=== PATIENT | female | born 1955 | race Caucasian/White ===

== ENCOUNTER → 2017-01-25 | Day surgery (SDC) | payer MEDICARE, MEDICAID ==
[~2017-01-25] VITALS: Ht 170.2 cm; Wt 140.0 kg
[~2017-01-25] MED LIST: 0.9% Sodium Chloride 1,000 ML IV SCH; ALBU4TAB4 PO; ASCO100089 PO; ASPI-973 PO; CALC600T87 PO; FENO160T14 PO; FURO40SO4 PO; IBUP-1827 PO; LIP40 PO; LISI-571 PO; METF1000 PO; MULT-1018 PO; NPH,100V11 SUBQ; OMEP20CA11 PO; RANI150C4 PO; Sodium Chloride LOK Flush 10 mL Syringe IV PRN; fentaNYL-PF 50 mCg/mL 2 mL Inj IVPUSH PRN
[2017-01-25 10:54] VITALS: BP 154/87; PULSE 96; RESP 16; O2SAT 94
[2017-01-25 11:55] VITALS: BP 140/69; PULSE 93; RESP 16; O2SAT 99
[2017-01-25 12:08] VITALS: BP 140/72; PULSE 91; RESP 16; O2SAT 98
[2017-01-25 12:20] VITALS: BP 125/79; PULSE 84; RESP 16; O2SAT 98
[2017-01-25 12:29] VITALS: BP 119/72; PULSE 84; RESP 16; O2SAT 96
--- NOTE | 2017-01-25 14:23 | ENDO ---
[address] [address] ENDOSCOPY PROCEDURE PATIENT: HYACINTH EVANS : 1955 MR#: [id number] ADMIT: 01/25/2017 JOB ID: [id number] DATE: 01/25/2017 PROCEDURE: Colonoscopy. INDICATION: Colon cancer screening. Patient's ASA classification is two. Mallampati score is two. MEDICATIONS: 1. Versed 6 mg. 2. Fentanyl 150 mcg. INSTRUMENT USED: PCF H 180 AL PREPARATION QUALITY: Good. PROCEDURE DETAILS: After informed consent was obtained, the patient was brought into the GI suite, where she was placed on oxygen via nasal cannula and monitored with continuous pulse oximeter, telemetry, and blood pressure monitoring. A time-out was performed, then she was placed in the left lateral decubitus position and medications were administered for sedation. Digital rectal exam was performed, which was unremarkable. The colonoscope was then inserted into the rectum and advanced under direct visualization to the cecum, which was identified by the presence of the ileocecal valve and appendiceal orifice. Once the cecum was reached, the colonoscope was withdrawn back into the rectum as the mucosa and lumen were examined. In the rectum, retroflexion was performed. Following retroflexion, the remaining air in the rectum was suctioned and the procedure was completed. FINDINGS: 1. In the cecum there was a diminutive polyp that was removed with cold biopsy forceps. 2. In the ascending colon there were three polyps measuring in size from 5 mm to 6 mm. All three polyps were removed with a hot snare. 3. In the transverse colon there was a 5 mm polyp that was removed with a hot snare. 4. In the descending colon there was a 4 mm sessile polyp that was removed with a hot snare. 5. In the sigmoid colon there was a 3-4 mm polyp that was removed with a cold snare. 6. Scattered diverticula were seen throughout the left side of the colon. IMPRESSION: 1. Cecal polyp. 2. Three ascending colon polyps. 3. One transverse colon polyp. 4. Descending colon polyp. 5. Sigmoid polyp. 6. Left-sided diverticulosis. RECOMMENDATIONS: 1. Avoid NSAIDs and anticoagulants for 72 hours. 2. Fiber rich diet. 3. Repeat colonoscopy in three years. COMPLICATIONS: None. ESTIMATED BLOOD LOSS: Less than 5 mL.
--- NOTE | 2017-02-01 11:20 | PATH ---
SURGICAL PATHOLOGY Attending Physician:Jessica Bailey CASE STATUS: Signed Out PATIENT NAME: HYACINTH EVANS PID: [id number] : 1955 DATE COLLECTED:01/25/2017 22:01 SPECIMEN: 1: Colon, Polyp 2: Colon, Polyp 3: Colon, Polyp 4: Colon, Polyp 5: Colon, Polyp CLINICAL HISTORY: 1). ASCENDING COLON POLYP X3 2). CECAL POLYP X1 3). TRANSVERSE COLON POLYP X1 4). DESCENDING COLON POLYP X1 5). SIGMOID POLYP X1 FINAL DIAGNOSIS: 1. Ascending Colon Polyps x3, Biopsies: Tubular adenoma, (four of nine pieces). 2. Cecal Polyp, Biopsy: Tubular adenoma. 3. Transverse Colon Polyp, Biopsy: Tubular adenoma. 4. Descending Colon Polyp, Biopsy: Tubular adenoma. 5. Sigmoid Colon Polyp, Biopsy: Hyperplastic polyp. ICD10: D12.6 GROSS DESCRIPTION: The specimen is received in five formalin filled containers labeled with the patient's name. 1). The specimen is labeled "ascending colon polyp x3" and consists of multiple portions of tissue which aggregate to 0.3 x 0.3 x 0.3 CM. The specimen is filtered and entirely submitted in cassette 1A. 2). The specimen is labeled "cecal polyp x1" and consists of 2 pieces of tissue which aggregate to 0.2 x 0.2 x 0.2 CM. The specimen is entirely submitted in cassette 2A. 3). The specimen is labeled "transverse colon polyp x1" and consists of a 0.2 x 0.2 x 0.2 CM portion of tissue which is entirely submitted in cassette 3A. 4). The specimen is labeled "descending colon polyp x1" and consists of a 0.3 x 0.3 x 0.3 CM portion of tissue which is entirely submitted in cassette 4A. 5). The specimen is labeled "sigmoid colon polyp x1" and consists of a 0.3 x 0.3 x 0.2 CM portion of tissue which is entirely submitted in cassette 5A. 01/25/2017[place] ICD-9 CODES: CPT CODES: 1: 56755 2: 01527 3: 30230 4: 37502 5: 01451 Electronically Signed Out Danny Vick MD, Ph.D. [facility] [address], [place] [address] Technical component performed at [facility], [address], [place], [address]
== END | disposition home or self-care (01) ==
LOC: END 00:57
PROVIDERS: ATTEND Internal Medicine Gastroenterology
DX: Z12.11 Encounter for screening for malignant neoplasm of colon (principal); D12.2 Benign neoplasm of ascending colon; D12.0 Benign neoplasm of cecum; D12.3 Benign neoplasm of transverse colon; D12.4 Benign neoplasm of descending colon; K63.5 Polyp of colon; K57.30 Diverticulosis of large intestine without perforation or abscess without bleeding; Z79.82 Long term (current) use of aspirin; Z79.4 Long term (current) use of insulin; Z79.899 Other long term (current) drug therapy